=== PATIENT | female | born 1995 | race Caucasian/White ===

== ENCOUNTER 2017-07-31 12:59 | Emergency (ER) | payer MEDICAID ==
[~2017-07-31] VITALS: Ht 157.5 cm; Wt 68.0 kg
[~2017-07-31 12:59] MED LIST: NITR100C6 PO
[2017-07-31 13:31] VITALS: BP 125/71
== END 2017-07-31 14:19 | disposition home or self-care (01) ==
LOC: ER 12:59
DX: H92.01 Otalgia, right ear (principal); Z79.899 Other long term (current) drug therapy
CPT/HCPCS: 99283